=== PATIENT | female | born 1955 | race Caucasian/White ===

== ENCOUNTER 2020-08-23 00:18 | Emergency (ER) | payer SELFPAY ==
[2020-08-23 00:43] VITALS: BP 189/90
== END 2020-08-23 00:45 | disposition left against medical advice (07) ==
LOC: ED 00:18
DX: I10 Essential (primary) hypertension (principal); Z53.21 Procedure and treatment not carried out due to patient leaving prior to being seen by health care provider
CPT/HCPCS: 93005

== ENCOUNTER 2022-06-20 08:48 | Outpatient (CLI) | payer OTHER ==
[2022-06-20 12:33] LABS: Hematocrit 41.6 % (30.3-42.9); Hemoglobin 13.3 gm/dl (10.1-14.3); Mean Corpuscular HGB Conc 32 % (30-34); Mean Corpuscular Volume 84 fl (79-97); Platelet Count 253 K/mm3 (140-440); Red Blood Count 4.95 M/mm3 (3.65-5.03); Red Cell Distribution Width 16.6 % (13.2-15.2)
[2022-06-20 18:55] LABS: Basophils % (Manual) 0 % (0.0-1.8); Eosinophils % (Manual) 0 % (0.0-4.3); Myelocytes # (Manual) 0.1 K/mm3; Total Cells Counted 100
[2022-06-20 18:56] LABS: Platelet Estimate Consistent w Auto; RBC Morphology Normal
== END 2022-06-20 08:49 | disposition home or self-care (01) ==
LOC: LABHHL 08:48
PROVIDERS: ATTEND Internal Medicine
DX: J18.9 Pneumonia, unspecified organism (principal)
CPT/HCPCS: 36415; 85007; 85025